=== PATIENT | female | born 1945 | race Caucasian/White ===

== ENCOUNTER → 2019-05-21 | Outpatient (CLI) | payer MEDICARE ==
--- NOTE | 2019-05-21 16:01 | Diagnostic Imaging Report ---
EXAM: CT CHEST SCREENING WO INDICATION: 174 pack year smoking history. Current smoker. COMPARISON: None. FINDINGS: No suspicious pulmonary nodule or mass. Calcified granulomas in the left lung. Calcified left hilar lymph node. No mediastinal, hilar or axillary lymphadenopathy. No pleural effusion or pneumothorax. No endobronchial lesions. Normal heart size and central pulmonary vascularity. Minimal atherosclerotic calcifications. No pericardial effusion. Osseous structures are intact. Visualized upper abdominal contents are unremarkable. IMPRESSION: No suspicious pulmonary nodule or mass. Recommend continued screening with low-dose chest CT in 12 months. Lung RADS category: 1. Modifier: None. Please note that the low-dose technique of this chest CT is of non-diagnostic quality. This study is only intended for lung cancer screening of high risk patients. Dictated by: Dictated on workstation # [id number]
== END ==
LOC: RAD 13:05
PROVIDERS: ATTEND Family Medicine
DX: F17.210 Nicotine dependence, cigarettes, uncomplicated (principal)

== ENCOUNTER → 2022-01-11 | Outpatient (CLI) | payer MEDICARE ==
[~2022-01-11] VITALS: Ht 165.1 cm; Wt 83.9 kg
[~2022-01-11] MED LIST: ATOR10TA PO; CIPR250S3 PO; DOCU100C37 PO; IBUP-844 PO; OXYC1TAB87 PO
== END | disposition home or self-care (01) ==
LOC: PREOP 11:16
PROVIDERS: ATTEND Obstetrics & Gynecology
DX: Z01.818 Encounter for other preprocedural examination (principal)

== ENCOUNTER 2022-01-14 09:26 | Day surgery (SDC) | payer MEDICARE, OTHER ==
[~2022-01-14] VITALS: Ht 165.1 cm; Wt 83.9 kg
[2022-01-14] VITALS (11 sets, daily range): BP systolic 103–157; BP diastolic 51–78
--- NOTE | 2022-01-14 07:53 | Progress Note-Pre Operative ---
Pre-Operative Progress Note Date of Available H&P: Jan 14, 2022 Date H&P Reviewed: Jan 14, 2022 Time H&P Reviewed: 11:00 History & Physical: H&P Reviewed, No changes noted Pre-Operative Diagnosis: PMB, Uterovaginal prolapse and stress urinary incontinence BRETT PINEDO MD Jan 14, 2022 07:53
--- NOTE | 2022-01-14 07:54 | Progress Note-Post Operative ---
Post-Operative Progess Note Surgeon (s)/Construction Secretary (s) Surgeon BRETT PINEDO MD Construction Secretary: Delaney Pre-Operative Diagnosis PMB, Uterovaginal prolapse and stress urinary incontinence Post-Operative Diagnosis Same with pathology pending Procedure & Operative Findings Date of Procedure 01/14/22 Procedure Performed/Findings Total laparoscopic hysterectomy with bilateralSalpingo-oophorectomyAs well as anterior and posterior vaginal repairs with enterocele repair Dr. Esquivel will do a pubovaginal sling and cystoscopy Anesthesia Type General Estimated Blood Loss Estimated blood loss (mL): minimal Specimens/Packing Specimens Removed Uterus fallopian tubes and ovaries BRETT PINEDO MD Jan 14, 2022 07:54
--- NOTE | 2022-01-14 08:01 | Discharge Inst-Surgical ---
Discharge Inst-Surgical Depart Medication/Instructions New, Converted or Re-Newed RX: Transmitted to Pharmacy Consults/Follow Up Patient Instructions: As directed Orders & Referrals Follow Up Appt: Return to clinic on 2021 for staple removal Call to make follow up appt. for patient in 4 weeks. Activity: Rest for 24 hours, than as tolerated. Wound Care: May remove Band-Aid tomorrow. Replace as desired. Keep incisions clean and dry. Wash daily with soap and water. Diet: As tolerated shower or tub bathe as desired. No driving for 24 hours, no alcoholic beverages for 24 hours, and nothing per vagina (no tampons, douching, or intercourse) for 8 weeks. Patient to return to the clinic as soon as possible for: Temperature greater than 101F, Severe Pain, Foul discharge from incision or vagina, Excessive Bleeding (more than a period). Activity Activity as Tolerated: No Diet Discharge Diet: No Restrictions BRETT PINEDO MD Jan 14, 2022 08:01
--- NOTE | 2022-01-14 09:11 | Progress Note-Pre Operative ---
Pre-Operative Progress Note Date of Available H&P: Jan 14, 2022 Date H&P Reviewed: Jan 14, 2022 Time H&P Reviewed: 09:30 History & Physical: H&P Reviewed, No changes noted Changes from last HP NONE Pre-Operative Diagnosis: JEAN GODFREY MD Jan 14, 2022 09:11
--- NOTE | 2022-01-14 09:12 | Progress Note-Post Operative ---
Post-Operative Progess Note Surgeon (s)/Diesel Service Technician (s) Surgeon JEAN DONOVAN MD Diesel Service Technician: MD KHRIS Pre-Operative Diagnosis CARMEN Post-Operative Diagnosis SAME Procedure & Operative Findings Date of Procedure 01/14/22 Procedure Performed/Findings PVS AND CYSTO Anesthesia Type GENERAL Estimated Blood Loss Estimated blood loss (mL): NEGLIGIBLE Specimens/Packing Specimens Removed NONE PackinGM ESTRACE VAG PACK JEAN DONOVAN MD Jan 14, 2022 09:12
[~2022-01-14 09:26] MED LIST changes: +BENZOCAINE/MENTHOL (DERMOPLAST) 56 ML CAN TP PRN; -CIPR250S3 PO; +ESTROGENS CONJ INJECTION 25 MG in WATER (STERILE) FOR INJECTION 5 ML IV ONE; +PATIENT MAY USE OWN MEDS, ALL MC SCH
[2022-01-14] MEDS ORDERED: LIDOCAINE/EPI 2% 1:200,00 (XYLOCAINE) 20 ML VIAL ONE (09:35)
[2022-01-14] MEDS ORDERED: ESTRADIOL VAGINAL CREAM 42.5 GM (ESTRACE) VG ONE ×2 (09:35→11:26)
[2022-01-14] MEDS ORDERED: fentaNYL INJ 100 MCG/2 ML AMP ONE ×2 (09:42→11:23)
[2022-01-14] MEDS ORDERED: proPOfol 200 MG/20 ML (DIPRIVAN) VIAL IV ONE (09:42)
[2022-01-14] MEDS ORDERED: ONDANSETRON 4 MG/2 ML (SDV) Z0FRAN ONE ×2 (09:42→12:55)
[2022-01-14] MEDS ORDERED: GLYCOPYRROLATE 0.2 MG/ML (ROBINUL) 2 ML VIAL ONE (09:42)
[2022-01-14] MEDS ORDERED: LIDOCAINE PF 2% 5 ML (XYLOCAINE) VIAL ONE (09:42)
[2022-01-14] MEDS ORDERED: ROCURONIUM 10 MG/ML 5 ML SYRINGE IV ONE (09:42)
[2022-01-14] MEDS ORDERED: NEOSTIGMINE (BLOXIVERZ ) 1 MG/1ML 10 ML VIAL ONE (09:46)
[2022-01-14] MEDS ORDERED: ceFAZolin INJECTION 1,000 MG VIAL IV ONE (10:00)
[2022-01-14] MEDS: LACTATED RINGERS 1,000 ML IV PRN ×2 (10:20→11:40)
[2022-01-14 10:23] LABS: BASOPHILS % (AUTO) 1 % (0-10); EOSINOPHILS # (AUTO) 0.1 10^3/uL (0.0-0.3); EOSINOPHILS % (AUTO) 1 % (0-10); HEMATOCRIT 40 % (35-52); HEMOGLOBIN 13.2 g/dL (11.5-16.0); LYMPHOCYTES # (AUTO) 1.4 10^3/uL (1.0-4.0); LYMPHOCYTES % (AUTO) 25 % (12-44); MEAN CORPUSCULAR HEMOGLOBIN 28 pg (25-34); MEAN CORPUSCULAR HGB CONC 33 g/dL (32-36); MEAN CORPUSCULAR VOLUME 84 fL (80-99); MEAN PLATELET VOLUME 9.1 fL (9.0-12.2); MONOCYTES # (AUTO) 0.3 10^3/uL (0.0-1.0); MONOCYTES % (AUTO) 5 % (0-12); NEUTROPHILS # (AUTO) 3.9 10^3/uL (1.8-7.8); NEUTROPHILS % (AUTO) 69 % (42-75); PLATELET COUNT 265 10^3/uL (130-400); WHITE BLOOD COUNT 5.6 10^3/uL (4.3-11.0)
[2022-01-14] MEDS ORDERED: LIDOCAINE/EPI 2% 1:200,00 (XYLOCAINE) 10 ML VIAL INJ ONE (11:24)
[2022-01-14] MEDS ORDERED: WATER (STERILE) FOR INJECTION 10 ML ONE (12:31)
[2022-01-14] MEDS ORDERED: ESTROGENS CONJ INJECTION 5 ML ONE (12:31)
--- NOTE | 2022-01-14 12:38 | Anesthesia-General Post-Op ---
General Patient Condition Mental Status/LOC: Same as Preop Cardiovascular: Satisfactory Nausea/Vomiting: Absent Respiratory: Satisfactory Pain: Controlled Complications: Absent Post Op Complications Complications None Follow Up Care/Instructions Patient Instructions None needed. Anesthesia/Patient Condition Patient Condition Patient is doing well, no complaints, stable vital signs, no apparent adverse anesthesia problems. No complications reported per nursing. CLEOPATRA RODRÍGUEZ CRNA Jan 14, 2022 12:38
[2022-01-14] MEDS ORDERED: SEVOFLURANE (ULTANE) 15 ML INHAL SOLN ONE (12:40)
[2022-01-14] MEDS ORDERED: HYDROmorphone 2 MG/ML VIAL (DILAUDID) IV ONE (12:45)
[2022-01-14] MEDS ORDERED: ONDANSETRON 4 MG/2 ML (SDV) Z0FRAN IVP PRN (12:45)
[2022-01-14] MEDS ORDERED: HYDROmorphone 2 MG/ML VIAL (DILAUDID) ONE (12:55)
[2022-01-14] MEDS: D5 LR IV SOLUTION 1,000 ML IV SCH ×2 (14:04→21:42)
[2022-01-14] MEDS: KETOROLAC 15 MG/ML VIAL IV SCH ×2 (15:13→20:24)
[2022-01-14] MEDS: ONDANSETRON 4 MG/2 ML (SDV) Z0FRAN IVP PRN ×2 (15:41→18:24)
[2022-01-14] MEDS: oxyCODONE/APAP 5/325MG (PERCOCET 5) TABLET PO PRN (16:21)
[2022-01-14] MEDS: fentaNYL INJ 100 MCG/2 ML AMP IVP PRN ×4 (16:54→23:56)
[2022-01-14] MEDS ORDERED: SIMETHICONE 80 MG (MYLICON) CHEW ONE (20:41)
--- NOTE | 2022-01-14 20:41 | OPERATIVE REPORT ---
DATE OF SERVICE: 01/14/2022 PREOPERATIVE DIAGNOSIS: On my part, stress urinary incontinence. POSTOPERATIVE DIAGNOSIS: On my part, stress urinary incontinence. OPERATION PERFORMED: Pubovaginal sling and cystoscopy. SURGEON: Jean Donovan MD. BEEF BONER: Karlos Juan MD COMPLICATIONS: None. DESCRIPTION OF PROCEDURE: After Dr. Juan performed his first part of his surgery, I went ahead and inserted a Ryder catheter draining clear fluid. I passed the Desara II device on both sides using the described technique. The sling was sitting nicely under the mid urethra with no tension or twist and passage of a curved hemostat easily between it and the underlying tissue. I removed the catheter to perform a cystoscopy that showed no foreign body, normal ureteric orifices and bladder and urethra with the presence of the sling under the mid urethra. I left the bladder half full, removed the cystoscope, performed a manual Valsalva maneuver that was negative. I reinserted a Ryder catheter draining clear fluid. Estimated blood loss was negligible and Dr. Juan procedure was the rest of surgery that he will dictate. Job ID: [id number] DocumentID: [id number] Dictated Date: 01/14/2022 12:10:39 Engineering Technologist Date: 01/14/2022 20:39:39 Dictated By: JEAN DONOVAN MD
[2022-01-14] MEDS ORDERED: SIMETHICONE 80 MG (MYLICON) CHEW PO PRN (20:45)
[2022-01-15] VITALS (7 sets, daily range): BP systolic 108–151; BP diastolic 51–67
[2022-01-15] MEDS: SIMETHICONE 80 MG (MYLICON) CHEW PO PRN (00:59)
--- NOTE | 2022-01-15 01:07 | OPERATIVE REPORT ---
DATE OF SERVICE: 01/14/2022 PREOPERATIVE DIAGNOSES: Postmenopausal bleeding as well as uterovaginal prolapse and stress urinary incontinence. POSTOPERATIVE DIAGNOSES: Postmenopausal bleeding as well as uterovaginal prolapse and stress urinary incontinence. OPERATIVE PROCEDURES: Total laparoscopic hysterectomy with bilateral salpingo-oophorectomy as well as anterior and posterior vaginal repairs with enterocele repair and with Dr. Layton doing a pubovaginal sling and cystoscopy. OPERATIVE DESCRIPTION: With the patient in the supine position under satisfactory general anesthesia, she was repositioned in dorsal lithotomy position in the [facility] and prepped and draped in the usual fashion for abdominal and vaginal surgery using robotic assistance. Weighted speculum placed in the posterior fornix of vagina, cervix exposed and grasped anteriorly with single tooth tenaculum. The uterus was sounded to 12 cm with uterine sound. The cervix inserted dilated with Ga dilators to accommodate a Holli II manipulator, which was placed with a 6 mm x 8 cm uterine probe and a 30 mm colpotomy ring. Sutures of #1 Vicryl placed at 3 and 9 o'clock position of the cervix to affix the uterus to the manipulator. Ryder catheter was placed in the urinary bladder. The patient was brought in low dorsal lithotomy position. A 12 mm incision was made 10 cm superior to the umbilicus. Veress needle was placed through that incision into abdominal cavity. Correct placement was confirmed with water drop test. The abdomen was insufflated with 2.4 liters of carbon dioxide. The Veress needle was removed and a 12 mm Optiview laparoscopic port was placed. The abdominal wall was transilluminated and 8 mm ports were placed 8 cm lateral to the umbilicus at a level about 2.5 to 3 cm above the umbilicus on each side. The patient was placed in Trendelenburg allowing the bowel spill out of the pelvis. The da Itz column was advanced on the patient and docked, and operative instrument placed in right and left lateral ports and I retired to the da Itz console. At the console using the vessel sealer on the right and bipolar fenestrated grasper on the left, the pelvis was first examined. The pelvis was partially occluded by adhesions of the sigmoid colon to the pelvic brim to the left anterior abdominal wall to the left tube and ovary and to the posterior surface of the uterus. These were mostly light filmy adhesions. They were taken down sharply, bluntly and with electrocautery to completely free the adhesions and allow full access to the pelvis. The tubes and ovaries were normal in appearance. The ovaries were atretic appearing. The uterus was somewhat enlarged and boggy, but otherwise normal. Laparoscope was rotated. The appendix was surgically absent. Attention was turned back to the pelvis. The right tube and ovary were grasped and elevated. The right ureter was identified medial to the IP ligament. The IP ligament was clamped, cauterized and divided. This was continued stepwise across the mesovarium with the vessel sealer and then across the round ligament, across the broad ligament down onto the cardinal ligament. Same procedure performed on the left, allowing for eventual removal of both tubes and ovaries with the uterus. The anterior lower uterine segment peritoneum was now divided using monopolar bronson. The bladder was carefully dissected down off the lower uterine segment and colpotomy incision was started at 12 o'clock position onto the colpotomy ring. That incision was continued circumferentially until the entire colpotomy ring was exposed and the uterus with the tubes and ovaries still attached was extracted through the vagina. The vaginal cuff was closed with a single suture of V-Loc barbed suture in the usual manner to good reapproximation and good hemostasis. The pelvis was examined for hemostasis, which was complete. There was no remaining abnormal pathology. There was no significant bleeding from the adhesiolysis of the sigmoid colon. The operative instruments were now removed as were the ports. The abdomen was evacuated of insufflating gas in the process of removing the ports. The skin incisions were stapled after first closing the supraumbilical incision, fascia with a [id number] suture of 2-0 Vicryl. The patient was now repositioned in the dorsal lithotomy position for the vaginal portion of the procedure. Weighted speculum placed in posterior fornix of vagina. The anterior vaginal wall was grasped with two Evens clamps. The vaginal wall was opened in the midline and then dissected back to the pubic rami bilaterally, dissecting the bladder off of the muscularis of the vagina. A suture of 2-0 Vicryl was used to elevate the bladder, reapproximate the endopelvic fascia to give support to the bladder. At this point, Dr. Layton assumed care of the patient. I remained to assist. Dr. Layton performed a pubovaginal sling and cystoscopy reporting efflux of urine from each ureter and a normal-appearing bladder. With Dr. Layton's portion of the procedure complete, I resumed care of the patient, resected redundant anterior vaginal wall muscularis and mucosa and closed the vaginal wall with a running locked suture of 3-0 Vicryl Rapide. Hemostasis was complete. Good support was evident. Posterior repair was now affected by placing Evens clamps on the perineum and the hymenal rings 5 and 7 o'clock position and inverted triangle of skin was removed carefully from the perineal body using as the base of the triangle the 2 Evens clamps, the apex approximately a centimeter to 1.5 cm down on to the perineal body. The perineal body was exceedingly thin. This tissue was also somewhat drawn and tense in appearance and slightly leukoplakic. The portion of tissue that was removed was sent to pathology for permanent section with concerns for lichen sclerosus versus some other etiology for the appearance. An upright triangle was removed from the posterior vaginal floor using the same base with the apex approximately 2 cm in the posterior vaginal floor. The rectovaginal space was entered sharply and dissected carefully bluntly to the apex of the vagina. The rectovaginal space was explored for an enterocele there being a small and it was reduced and then a pursestring suture of 2-0 Vicryl was placed to obliterate the enterocele. Additional sutures of 2-0 Vicryl were used to obliterate the rectovaginal space and then additional sutures of 2-0 Vicryl were used to restore the perineal body. Redundant posterior vaginal wall muscularis mucosa was removed sharply. The vaginal wall was then closed with a running locked suture of 3-0 Vicryl Rapide. That was continued past the hymenal ring and back down on the perineal body then back up subcutaneous to the hymenal ring where the suture was tied. Digital rectal exam confirmed no stricture or stenosis of the rectum, no sutures into or through the rectal mucosa. The vagina was now filled with Estrace vaginal cream and a pack of Kerlix gauze was placed. Dr. Layton left the Ryder catheter to dependent drainage. It was draining clear yellow urine. Sponge and needle counts were correct. Blood loss was minimal. The patient was now uneventfully awakened from her general anesthesia and transferred to recovery room in stable condition. Job ID: [id number] DocumentID: [id number] Dictated Date: 01/14/2022 17:41:12 Montessori Lead Teacher Date: 01/15/2022 01:06:50 Dictated By: BRETT PINEDO MD
[2022-01-15] MEDS ORDERED: PROMETHAZINE INJ 25 MG/ML (PHENERGAN) AMP IM ONE (01:15)
[2022-01-15] MEDS ORDERED: MEPERIDINE (DEMEROL) INJ 100 MG/ML IM ONE (01:15)
[2022-01-15] MEDS ORDERED: methylPREDNISolone 40 MG/ML (Solu-MEDROL) VIAL IV ONE (01:15)
[2022-01-15] MEDS ORDERED: ONDANSETRON 4 MG/2 ML (SDV) Z0FRAN IVP ONE (01:15)
[2022-01-15] MEDS ORDERED: ONDANSETRON 4 MG/2 ML (SDV) Z0FRAN ONE (01:20)
[2022-01-15] MEDS ORDERED: methylPREDNISolone 40 MG/ML (Solu-MEDROL) VIAL ONE (01:21)
[2022-01-15] MEDS: KETOROLAC 15 MG/ML VIAL IV SCH ×2 (01:27→07:04)
[2022-01-15] MEDS ORDERED: PROMETHAZINE INJ 25 MG/ML (PHENERGAN) AMP ONE (06:41)
[2022-01-15] MEDS ORDERED: PROMETHAZINE INJ 25 MG/ML (PHENERGAN) AMP IVP ONE (07:00)
--- NOTE | 2022-01-15 07:57 | Progress Note ---
Standard Progress Note Progress Notes/Assess & Plan Date Seen by a Provider: Jan 15, 2022 Time Seen by a Provider: 07:54 Progress/Assessment & Plan This patient complains of persistent recurrent nausea primarily with Change of position.Her pain control has been somewhat erratic through the night but she has good pain Control currently. Ryder catheter and vaginal packing have just now been removed. Vital Signs Date Time Temp Pulse Resp B/P (MAP) Pulse Ox O2 Delivery O2 Flow Rate FiO2 01/15/22 07:03 36.4 01/15/22 06:49 76 147/63 (91) 94 Nasal Cannula 2.00 01/15/22 03:25 95 Nasal Cannula 2.00 01/15/22 03:11 36.6 65 130/62 (84) 94 Nasal Cannula 1.00 01/15/22 01:01 68 96 Nasal Cannula 1.00 01/15/22 00:57 61 97 Nasal Cannula 1.50 01/15/22 00:00 36.6 74 141/60 (87) 95 Nasal Cannula 1.50 01/14/22 21:25 97 Nasal Cannula 2.00 01/14/22 21:24 97 Nasal Cannula 3.00 01/14/22 20:15 36.1 62 16 145/63 (90) 96 Nasal Cannula 3.00 01/14/22 15:50 36.1 65 18 148/78 (101) 96 Nasal Cannula 3.00 01/14/22 13:40 97 Nasal Cannula 3.00 01/14/22 13:40 36.0 60 18 157/71 (99) 97 Nasal Cannula 3.00 01/14/22 13:35 Nasal Cannula 3.00 01/14/22 13:35 36.8 20 144/65 (91) 94 Nasal Cannula 3.00 01/14/22 13:30 Nasal Cannula 3.00 01/14/22 13:20 20 144/65 (91) 94 Nasal Cannula 3.00 01/14/22 13:15 OxyMask 2.00 01/14/22 13:10 20 120/56 (77) 96 OxyMask 4.00 01/14/22 13:00 OxyMask 4.00 01/14/22 13:00 20 114/56 (75) 95 OxyMask 5.00 01/14/22 12:50 20 120/59 (79) 97 OxyMask 8.00 01/14/22 12:45 OxyMask 8.00 01/14/22 12:40 20 123/65 (84) 98 OxyMask 8.00 01/14/22 12:31 37.0 20 103/51 (68) 99 OxyMask 8.00 01/14/22 12:31 OxyMask 8.00 01/14/22 09:35 36.2 79 16 151/78 (102) 96 Room Air I & O 01/15/22 07:00 Intake Total 3130 ml Output Total 1715 ml Balance 1415 ml Vital signs are stable. Patient is afebrile. The abdomen is benign. Extremities show no clubbing or cyanosis. There is no Homans' sign. Pelvic exam was deferred Assessment and plan Postoperative day #1 status post total laparoscopic hysterectomy with bilateral salpingo-oophorectomy as well as anterior posterior vaginal repairs pubovaginal sling and cystoscopy. Patient has some issues with pain control nausea through the night that seems to be improved this morning. We will go ahead and repeat the Solu-Medrol that seem to help most with the nausea last night. Patient has been able to take some oral intake off and on but then has had recurrent nausea with emesis intermittently as well. We will continue supportive care with the bladder trial now ongoing Final Diagnosis Postmenopausal bleeding and uterovaginal prolapse BRETT PINEDO MD Jan 15, 2022 07:57
[2022-01-15] MEDS ORDERED: methylPREDNISolone 40 MG/ML (Solu-MEDROL) VIAL IV NR (08:30)
[2022-01-15] MEDS: IBUPROFEN 600 MG (MOTRIN) TAB PO SCH ×4 (09:00→23:35)
[2022-01-15] MEDS: DOCUSATE SODIUM 100 MG (COLACE) CAP PO SCH ×2 (09:10→20:58)
--- NOTE | 2022-01-15 10:06 | Progress Note - Urology ---
Progress Note-Urology Progress Notes/Assess & Plan Progress/Assessment & Plan COMPLAINS OF NAUSEA. MEDS NOT HELPING. DENIES CHEST PAIN OR SOB. ABDOMEN IS SOFT, NOT TENDER. PLAN PER ORDERS Final Diagnosis JEAN GODFREY MD Jan 15, 2022 10:06
[2022-01-15] MEDS ORDERED: PROCHLORPERAZINE 25 MG (COMPAZINE) SUPP PR PRN (10:15)
[2022-01-15] MEDS ORDERED: CIPR250S3 PO (14:13)
[2022-01-16 03:36] VITALS: BP 128/58
[2022-01-16] MEDS: SIMETHICONE 80 MG (MYLICON) CHEW PO PRN (06:53)
[2022-01-16 07:30] VITALS: BP 117/61
[2022-01-16] MEDS ORDERED: METOCLOPRAMIDE 10 MG (REGLAN) TAB ONE (08:45)
[2022-01-16] MEDS ORDERED: METOCLOPRAMIDE 10 MG (REGLAN) TAB PO PRN (08:45)
[2022-01-16] MEDS: oxyCODONE/APAP 5/325MG (PERCOCET 5) TABLET PO PRN (08:47)
[2022-01-16] MEDS: IBUPROFEN 600 MG (MOTRIN) TAB PO SCH (08:47)
[2022-01-16] MEDS: DOCUSATE SODIUM 100 MG (COLACE) CAP PO SCH (08:48)
--- NOTE | 2022-01-16 09:36 | Progress Note ---
Standard Progress Note Progress Notes/Assess & Plan Date Seen by a Provider: Jan 16, 2022 Time Seen by a Provider: 09:35 Progress/Assessment & Plan This patient complains of persistent recurrent nausea primarily with Change of position.Her pain control has been somewhat erratic through the night but she has good pain Control currently. Ryder catheter and vaginal packing have just now been removed. Vital Signs Date Time Temp Pulse Resp B/P (MAP) Pulse Ox O2 Delivery O2 Flow Rate FiO2 01/15/22 07:03 36.4 01/15/22 06:49 76 147/63 (91) 94 Nasal Cannula 2.00 01/15/22 03:25 95 Nasal Cannula 2.00 01/15/22 03:11 36.6 65 130/62 (84) 94 Nasal Cannula 1.00 01/15/22 01:01 68 96 Nasal Cannula 1.00 01/15/22 00:57 61 97 Nasal Cannula 1.50 01/15/22 00:00 36.6 74 141/60 (87) 95 Nasal Cannula 1.50 01/14/22 21:25 97 Nasal Cannula 2.00 01/14/22 21:24 97 Nasal Cannula 3.00 01/14/22 20:15 36.1 62 16 145/63 (90) 96 Nasal Cannula 3.00 01/14/22 15:50 36.1 65 18 148/78 (101) 96 Nasal Cannula 3.00 01/14/22 13:40 97 Nasal Cannula 3.00 01/14/22 13:40 36.0 60 18 157/71 (99) 97 Nasal Cannula 3.00 01/14/22 13:35 Nasal Cannula 3.00 01/14/22 13:35 36.8 20 144/65 (91) 94 Nasal Cannula 3.00 01/14/22 13:30 Nasal Cannula 3.00 01/14/22 13:20 20 144/65 (91) 94 Nasal Cannula 3.00 01/14/22 13:15 OxyMask 2.00 01/14/22 13:10 20 120/56 (77) 96 OxyMask 4.00 01/14/22 13:00 OxyMask 4.00 01/14/22 13:00 20 114/56 (75) 95 OxyMask 5.00 01/14/22 12:50 20 120/59 (79) 97 OxyMask 8.00 01/14/22 12:45 OxyMask 8.00 01/14/22 12:40 20 123/65 (84) 98 OxyMask 8.00 01/14/22 12:31 37.0 20 103/51 (68) 99 OxyMask 8.00 01/14/22 12:31 OxyMask 8.00 01/14/22 09:35 36.2 79 16 151/78 (102) 96 Room Air I & O 01/15/22 07:00 Intake Total 3130 ml Output Total 1715 ml Balance 1415 ml Vital signs are stable. Patient is afebrile. The abdomen is benign. Extremities show no clubbing or cyanosis. There is no Homans' sign. Pelvic exam was deferred Assessment and plan Postoperative day #1 status post total laparoscopic hysterectomy with bilateral salpingo-oophorectomy as well as anterior posterior vaginal repairs pubovaginal sling and cystoscopy. Patient has some issues with pain control nausea through the night that seems to be improved this morning. We will go ahead and repeat the Solu-Medrol that seem to help most with the nausea last night. Patient has been able to take some oral intake off and on but then has had recurrent nausea with emesis intermittently as well. We will continue supportive care with the bladder trial now ongoing January 16, 2022 Patient is without complaint. She is ambulating, voiding, tolerating oral intake well and has good pain control. She does have some issues with gas but that seems to be improving she does feel like that she is passing gas. Patient is requesting discharge home. Vital Signs Date Time Temp Pulse Resp B/P (MAP) Pulse Ox O2 Delivery O2 Flow Rate FiO2 01/16/22 03:36 36.1 69 16 128/58 (81) 96 Nasal Cannula 1.00 01/15/22 23:31 36.2 64 18 108/52 (70) 94 Nasal Cannula 1.00 01/15/22 20:58 93 Nasal Cannula 1.00 01/15/22 20:54 Nasal Cannula 1.00 01/15/22 20:54 36.2 68 111/51 (71) 90 Room Air 01/15/22 15:33 37.0 68 130/60 (83) 91 Room Air 01/15/22 10:37 37.1 68 151/67 (95) 93 Nasal Cannula 2.00 I & O 01/16/22 06:59 Intake Total 600 ml Output Total 450 ml Balance 150 ml Vital signs are stable. Patient is afebrile. Blood pressures have normalized. The abdomen is benign. The surgical incision dressings are clean and dry Extremities show no clubbing or cyanosis. There is no Homans' sign. Assessment and plan Postoperative day #2 doing well plan is for discharge home with follow-up in clinic Final Diagnosis Postmenopausal bleeding/uterovaginal prolapse/stress urinary incontinence BRETT PINEDO MD Jan 16, 2022 09:36
== END 2022-01-16 11:20 | disposition home or self-care (01) ==
LOC: SDC 09:26 → WS 13:50 → SDC 01-16 11:20
PROVIDERS: ATTEND Obstetrics & Gynecology
DX: N83.8 Other noninflammatory disorders of ovary, fallopian tube and broad ligament (principal); N85.01 Benign endometrial hyperplasia; N76.89 Other specified inflammation of vagina and vulva; N83.202 Unspecified ovarian cyst, left side; N83.201 Unspecified ovarian cyst, right side; N39.3 Stress incontinence (female) (male); F17.210 Nicotine dependence, cigarettes, uncomplicated; N95.0 Postmenopausal bleeding
CPT/HCPCS: 57260; 57288; 58571; 85025; 87081; 93005; C1771; 36415